=== PATIENT | female | born 1945 | race Caucasian/White ===

== ENCOUNTER → 2018-02-27 | Outpatient (CLI) | payer OTHER | LOC: M WHC 07:31 | DX: Z12.31 Encounter for screening mammogram for malignant neoplasm of breast (principal); Z80.3 Family history of malignant neoplasm of breast; Z78.0 Asymptomatic menopausal state; Z92.0 Personal history of contraception | CPT/HCPCS: 77067 ==

== ENCOUNTER → 2018-04-11 | Outpatient (REF) | payer OTHER | LOC: M LABDRAW1 10:56 | DX: R19.7 Diarrhea, unspecified (principal) | CPT/HCPCS: 87493 ==

== ENCOUNTER 2018-04-22 07:29 | Day surgery (SDC) | payer OTHER ==
[2018-04-22] MEDS: NS 1,000 ML IV (08:03)
[2018-04-22] MEDS ORDERED: PROPOFOL 200 MG/20 ML VIAL As Ordered (08:51)
[2018-04-22] MEDS ORDERED: PHENYLephrine HCL 500 MCG/5 ML (100MCG/ML) SYRINGE (J2370) As Ordered (08:51)
== END 2018-04-22 09:34 | disposition home or self-care (01) ==
LOC: M OPP 07:29
DX: Z12.11 Encounter for screening for malignant neoplasm of colon (principal); K52.9 Noninfective gastroenteritis and colitis, unspecified; I10 Essential (primary) hypertension; E78.5 Hyperlipidemia, unspecified; R00.2 Palpitations; K21.9 Gastro-esophageal reflux disease without esophagitis; M19.90 Unspecified osteoarthritis, unspecified site; M54.2 Cervicalgia; I67.1 Cerebral aneurysm, nonruptured; F41.9 Anxiety disorder, unspecified; Z85.818 Personal history of malignant neoplasm of other sites of lip, oral cavity, and pharynx; Z92.3 Personal history of irradiation; F17.210 Nicotine dependence, cigarettes, uncomplicated; Z88.2 Allergy status to sulfonamides; Z79.899 Other long term (current) drug therapy; Z80.3 Family history of malignant neoplasm of breast; Z80.6 Family history of leukemia
CPT/HCPCS: 45380

== ENCOUNTER → 2018-12-12 | Outpatient (REF) | payer OTHER ==
[~2018-12-12] MED LIST: ATOR1TAB21 PO; DILT180C74 PO; FISH100049 PO; NAPR-885 PO; OMEP40CA2 PO
[2018-12-12 16:53] LABS: FREE T3 2.4 PG/ML (2.2-4.0); THYROID STIMULATING HORMONE 2.18 uIU/ML (0.358-3.740); THYROXINE (T4) 7.5 UG/DL (4.5-12.0)
== END ==
LOC: M LABDRAW1 15:45
PROVIDERS: ATTEND Ophthalmology
DX: H53.2 Diplopia (principal)

== ENCOUNTER 2019-04-30 13:24 | Day surgery (SDC) | payer MEDICARE ==
[~2019-04-30] VITALS: Ht 157.5 cm; Wt 61.0 kg
[~2019-04-30 13:24] MED LIST changes: +CHOL50002 PO; -DILT180C74 PO; +DILT1CAP3 PO; +FENO145T13 PO; +LR 1,000 ML IV SCH
[2019-04-30] MEDS ORDERED: LIDOCAINE 2% INJ 100 MG/5 ML SDV (FOR ANES.) As Ordered ONE (15:05)
[2019-04-30] MEDS ORDERED: PROPOFOL 200 MG/20 ML VIAL As Ordered ONE (15:05)
[2019-04-30] MEDS ORDERED: ONDANSETRON 4MG/2ML VIAL (J2405) As Ordered ONE (15:07)
[2019-04-30] MEDS ORDERED: dexameTHASONE 4 MG/ML 1ML VIAL (J1100) As Ordered ONE (15:08)
[2019-04-30] MEDS ORDERED: fentaNYL 100 MCG/2 ML INJECTION (J3010) As Ordered ONE (15:11)
[2019-04-30] MEDS ORDERED: MIDAZOLAM INJ 2 MG/2 ML VIAL (J2250) As Ordered ONE (15:11)
[2019-04-30] MEDS ORDERED: ONDANSETRON 4MG/2ML VIAL (J2405) IV PRN (17:15)
[2019-04-30] MEDS ORDERED: LR 1,000 ML IV SCH ×2 (17:15)
[2019-04-30] MEDS ORDERED: fentaNYL 100 MCG/2 ML INJECTION (J3010) IV PRN (17:15)
[2019-04-30] MEDS ORDERED: IBUPROFEN 600 MG TAB PO PRN (17:15)
[2019-04-30 17:20] VITALS: BP 141/64
--- NOTE | 2019-04-30 22:01 | ECGEPIP ---
[facility] Test Date: 2019-04-30 Pat Name: ABRAHAM BANDA Department: Room: - Gender: Female Cardiac Cath Lab Radiology Technologist: GRACIE : 1945 Requested By: ASIF Ruiz Order Number: [id number] Reading MD: Zac Rain Measurements Intervals [place] Rate: 68 P: 63 RI: 234 QRS: QRSD: 86 T: 67 QT: 405 QTc: 432 Interpretive Statements SINUS RHYTHM WITH FIRST DEGREE AV BLOCK BORDERLINE LEFT AXIS DEVIATION LOW QRS VOLTAGE IN EXTREMITY LEADS Electronically Signed on 04-30-2019 22:01:11 EDT by Zac Rain
--- NOTE | 2019-05-01 08:24 | RO ---
DATE OF PROCEDURE: 04/30/2019 PREOPERATIVE DIAGNOSIS: Hematuria, she did have preoperative small caruncle. POSTOPERATIVE DIAGNOSIS: Normal bladder, still the small caruncle. No other significant lesion nor area of friability. PROCEDURE: Cystourethroscopy. SURGEON: Dr. Pat Holman MANAGER FINANCIAL REPORTING: None. ANESTHESIA: Laryngeal mask airway (LMA). BRIEF DESCRIPTION OF PROCEDURE AND FINDINGS: Sarita was brought to the operating room where sufficient LMA anesthesia was induced and she was prepped, draped and positioned in the usual sterile fashion and the cystoscope was placed. The first pictures were taken just with urine and you can see there is one or two tiny specks of fluff, but not a cloudy natural urine. No areas of friability. No polyps. No stones. No lesions. No hypervascularity. No Jean Paul's lesions. No ulcerations. No distortion or atypical appearance even on emptying the bladder and refilling it. We were able to see through the wall the normal peristalsis of the intestines. We were able to see normal jets of urine. We were able to see sort of normal bladder activity, but there was no evidence of any atypical finding for us to biopsy, nor was there abnormal distortion of the wall or abnormal thickening. We did fill and empty a couple of times just to kind of test the wall and also backed out slowly through the urethra and did not see any urethral lesions other than the urethral caruncle right at the meatus that we knew about before we placed the scope. She did not have anything worthy of biopsy, so no biopsy was done. The bladder was emptied at the end of the case and the procedure ended. Estimated blood loss for the procedure was 0 mL. Fluid replacement was crystalloid. Complications: None. Condition and Disposition: Sarita tolerated the procedure well and was recovering in the recovery room in good condition.
== END 2019-04-30 18:01 | disposition home or self-care (01) ==
LOC: M SDC 13:24
PROVIDERS: ATTEND Obstetrics & Gynecology
DX: R31.9 Hematuria, unspecified (principal); E78.00 Pure hypercholesterolemia, unspecified; R00.2 Palpitations; F41.9 Anxiety disorder, unspecified; K21.9 Gastro-esophageal reflux disease without esophagitis; Z88.2 Allergy status to sulfonamides; Z92.3 Personal history of irradiation; Z79.899 Other long term (current) drug therapy; Z85.818 Personal history of malignant neoplasm of other sites of lip, oral cavity, and pharynx; F17.210 Nicotine dependence, cigarettes, uncomplicated
CPT/HCPCS: 52000; 93005; J1100; J2250; J2405; J3010

== ENCOUNTER 2020-09-29 10:35 | Emergency (ER) | payer MEDICARE ==
[~2020-09-29] VITALS: Ht 157.5 cm; Wt 59.5 kg
[~2020-09-29 10:35] MED LIST changes: -FENO145T13 PO; +FENO145T7 PO; -LR 1,000 ML IV SCH; -OMEP40CA2 PO; +OMEP40CA97 PO
[2020-09-29 11:06] LABS: BASO # 0.1 10^3/uL (0.0-0.2); EOS # 0.2 10^3/uL (0.0-0.5); EOS % 3.1 % (0.0-3.0); HEMATOCRIT 36.3 % (36.0-47.0); HEMOGLOBIN 11.7 g/dl (12.0-15.5); LYMPH # 1.9 10^3/uL (1.5-5.0); LYMPH % 25.1 % (24.0-44.0); MEAN CORPUSCULAR HGB CONC 32.2 g/dl (32.0-36.5); MEAN CORPUSCULAR VOLUME 89.9 fl (80.0-96.0); MONO # 0.7 10^3/uL (0.0-0.8); MONO % 9.6 % (0.0-5.0); NEUTROPHILS # 4.7 10^3/uL (1.5-8.5); NEUTROPHILS % 60.9 % (36.0-66.0); PLATELET COUNT, AUTOMATED 398 10^3/uL (150-450); RED BLOOD COUNT 4.04 10^6/uL (4.00-5.40); WHITE BLOOD COUNT 7.6 10^3/uL (4.0-10.0)
[2020-09-29] MEDS ORDERED: FISH1000 PO (11:10)
[2020-09-29] MEDS ORDERED: GABA-843 PO (11:10)
--- NOTE | 2020-09-29 11:12 | REP ---
INDICATION: CHEST PAIN. COMPARISON: Comparison chest x-ray March 26, 2016. There is also a comparison chest x-ray from January 10, 2018.. TECHNIQUE: Portable upright AP single view. FINDINGS: Monitoring electrodes are seen. There is new fullness and enlargement of the left hilus. There is new left mediastinal fullness as well making the aortico-pulmonary window region convex outward. These findings are suspicious for malignant adenopathy in the hilus and mediastinum on the left. There is a patchy density in the left lung apex which may be nodule or postobstructive atelectasis. Lung hendricks are otherwise clear. Pleural angles are sharp. Heart is not enlarged. Pulmonary vasculature is not increased. No focal bony abnormality. IMPRESSION: Evidence of new left hilar lymphadenopathy and left mediastinal lymphadenopathy. Postobstructive change versus nodular density left apex. Recommend chest CT, preferably with IV contrast.. Cysts findings suspicious for bronchogenic malignancy. The findings represent a change from the comparison study. <Electronically signed by Jhonatan Moore > 09/29/20 1104
[2020-09-29 11:17] LABS: INR 1.07; PROTHROMBIN TIME 14.1 SECONDS (12.5-14.3)
[2020-09-29] MEDS ORDERED: ISOVUE-370 76% 100ML VIAL As Ordered ONE (11:31)
[2020-09-29 11:45] LABS: ALBUMIN 3.8 GM/DL (3.2-5.2); BILIRUBIN,DIRECT 0.1 MG/DL (0.0-0.2); BILIRUBIN,TOTAL 0.3 MG/DL (0.2-1.0); THYROID STIMULATING HORMONE 2.56 uIU/ML (0.358-3.740); TOTAL PROTEIN 7.1 GM/DL (6.4-8.2)
[2020-09-29 13:31] VITALS: BP 153/69
--- NOTE | 2020-09-29 14:45 | REP ---
INDICATION: pleuritic Cp/lung mass/r/o PE. COMPARISON: Comparison is made with today's portable chest x-ray showing a mass effect in the left hilus and left mediastinum. TECHNIQUE: Contrast dose: 75 ML of Isovue [address] technique: Helical scanning is acquired and overlapping 1.5 mm and contiguous 3 mm axial images are reformatted. In addition, maximum intensity projection and multiplanar re-formation images are generated in sagittal and coronal imaging projections. FINDINGS: CT study confirms the presence of a spiculated fairly large lung nodule in the left lung apex measuring 2.9 cm in greatest diameter. This demonstrates fibrotic extension with some cavitation towards the superolateral pleura. There is also biapical pleuroparenchymal scarring. There is a tiny 3 mm nodule in the left lower lobe on page 49 of 96 and series 402 of today's study. No other significant pulmonary nodule is seen. No infiltrate is seen. There is no evidence of pleural or pericardial effusion. There is some vascular calcification. There is good opacification of the pulmonary arterial tree. There is no CT evidence of pulmonary embolus. No aortic dissection or aneurysm is seen. There is bulky left hilar lymphadenopathy corresponding to the chest x-ray findings. Multiple enlarged left hilar lymph nodes are noted. There is also bulky AP window region mediastinal lymphadenopathy. A large subcarinal lymph node is seen. This measures 5 cm right to left x 2.8 cm anterior to posterior x 3.8 cm cranial to caudal. The AP window region mediastinal adenopathy measures up to 3.3 x 3.0 x 3.9 cm. There are several mildly enlarged spherical pretracheal lymph nodes. No definite right hilar adenopathy. The bulky adenopathy on the left attenuates the left main pulmonary artery which is rather narrowed. The left upper lobe pulmonary arterial vessels are narrowed as well. There is mass effect and a concentric narrowing on the left upper and lower lobe bronchi. There is a left adrenal mass measuring 2.9 cm in greatest diameter. The right adrenal gland is normal. There are suspicious lymph nodes in the celiac axis region to the left of midline in the upper abdomen. These measure 1.2 x 1.5 and 1.4 cm in diameter respectively. An opaque gallstone is visible in the gallbladder. There are small low-density lesions in the liver consistent with small cysts. Visualized upper abdominal structures are otherwise unremarkable. No bony destructive lesion is seen. IMPRESSION: Findings consistent with advanced bronchogenic malignancy. There is a spiculated 2.8 cm nodule in the left upper lobe with bulky left hilar, left mediastinal, subcarinal and pretracheal mediastinal adenopathy. There is a left adrenal mass consistent with metastasis and there are suspicious celiac axis lymph nodes in the left upper abdomen. There is associated mass effect attenuating the left pulmonary arteries and the left bronchial structures. Cholelithiasis is also noted. <Electronically signed by Jhonatan Moore > 09/29/20 [id number]
--- NOTE | 2020-09-30 07:02 | ECGEPIP ---
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
--- NOTE | 2020-09-30 07:33 | ED PDOC ---
Post-Departure Follow-Up dr martín moreno fxed formal report of cta chest for fuj Bruno Saldaña MD Sep 30, 2020 07:33
== END 2020-09-29 13:42 | disposition home or self-care (01) ==
LOC: M ED 10:35
DX: R91.8 Other nonspecific abnormal finding of lung field (principal); R94.31 Abnormal electrocardiogram [ECG] [EKG]; E78.9 Disorder of lipoprotein metabolism, unspecified; F17.200 Nicotine dependence, unspecified, uncomplicated; Z79.899 Other long term (current) drug therapy; Z91.040 Latex allergy status; Z85.21 Personal history of malignant neoplasm of larynx; Z92.3 Personal history of irradiation; Z80.3 Family history of malignant neoplasm of breast
CPT/HCPCS: 71045; 71275; 80047; 80076; 83690; 84443; 84484; 85025; 85610; 93005; 93041; 94760; 99285; Q9967

== ENCOUNTER 2020-09-30 16:03 | Emergency (ER) | payer MEDICARE ==
[~2020-09-30] VITALS: Ht 154.9 cm; Wt 60.4 kg
[~2020-09-30 16:03] MED LIST changes: +FISH1000 PO; +GABA-843 PO
[2020-09-30] MEDS ORDERED: FLUORESCEIN OPHTH 1 MG STRIP OD ONE (17:00)
[2020-09-30 17:40] VITALS: BP 150/70
[2020-09-30] MEDS ORDERED: ACETAMINOPHEN TAB 650MG DOSE (2X325MG) PO ONE (17:45)
== END 2020-09-30 17:49 | disposition home or self-care (01) ==
LOC: M ED 16:03
DX: T49.5X5A Adverse effect of ophthalmological drugs and preparations, initial encounter (principal); Y92.9 Unspecified place or not applicable; Y93.9 Activity, unspecified; R91.8 Other nonspecific abnormal finding of lung field; Z79.899 Other long term (current) drug therapy; Z88.2 Allergy status to sulfonamides

== ENCOUNTER → 2020-10-06 | Outpatient (CLI) | payer MEDICARE ==
[2020-10-06 15:58] LABS: PLATELET COUNT, AUTOMATED 499 10^3/uL (150-450)
[2020-10-06 16:14] LABS: INR 1.08; PROTHROMBIN TIME 14.2 SECONDS (12.5-14.3)
[2020-10-06 16:15] LABS: PARTIAL THROMBOPLASTIN TIME 41.1 SECONDS (24.2-38.5)
[2020-10-06 16:24] LABS: BLOOD UREA NITROGEN 10 MG/DL (7-18); CREATININE FOR GFR 0.74 MG/DL (0.55-1.30); GLOMERULAR FILTRATION RATE > 60.0 (>39)
== END ==
LOC: M PLALAB 14:29
PROVIDERS: ATTEND Internal Medicine Pulmonary Disease
DX: R91.8 Other nonspecific abnormal finding of lung field (principal)

== ENCOUNTER 2020-10-23 03:41 | Emergency (ER) | payer MEDICARE ==
[~2020-10-23] VITALS: Ht 157.5 cm; Wt 59.1 kg
[2020-10-23] MEDS ORDERED: OMEP-218 PO (04:00)
[2020-10-23] MEDS ORDERED: HYDR-3713 (04:00)
[2020-10-23] MEDS ORDERED: ADVA230A (04:00)
[2020-10-23] MEDS ORDERED: ONDANSETRON 4MG/2ML VIAL IV ONE ×2 (04:15→08:15)
[2020-10-23] MEDS ORDERED: COMBIVENT RESPIMAT 100-20MCG INHALER 4GM INH ONE (04:15)
[2020-10-23 04:29] LABS: BASO # 0.1 10^3/uL (0.0-0.2); BASO % 0.9 % (0.0-1.0); EOS # 0.1 10^3/uL (0.0-0.5); EOS % 1.4 % (0.0-3.0); HEMATOCRIT 36.2 % (36.0-47.0); HEMOGLOBIN 11.7 g/dl (12.0-15.5); LYMPH # 1.3 10^3/uL (1.5-5.0); LYMPH % 16.8 % (24.0-44.0); MEAN CORPUSCULAR HEMOGLOBIN 28.8 pg (27.0-33.0); MEAN CORPUSCULAR HGB CONC 32.3 g/dl (32.0-36.5); MEAN CORPUSCULAR VOLUME 89.2 fl (80.0-96.0); MONO # 0.6 10^3/uL (0.0-0.8); MONO % 7.3 % (0.0-5.0); NEUTROPHILS # 5.6 10^3/uL (1.5-8.5); NEUTROPHILS % 73.2 % (36.0-66.0); PLATELET COUNT, AUTOMATED 412 10^3/uL (150-450); RED BLOOD COUNT 4.06 10^6/uL (4.00-5.40); WHITE BLOOD COUNT 7.7 10^3/uL (4.0-10.0)
--- NOTE | 2020-10-23 04:49 | REPVR ---
PROCEDURE INFORMATION: Exam: XR Chest, 1 View Exam date and time: 10/23/20 (4:18am) Age: 75 years old Clinical indication: Dyspnea and cough TECHNIQUE: Imaging protocol: Portable CXR Views: 1 view COMPARISON: Portable CXR of 09/29/20 CT CHEST of 09/29/20 FINDINGS: Comparison is made with chest studies done on 09/29/20. Redemonstration of soft tissue fullness at the A-P window region (left hilar and suprahilar regions) --- which appears to have enlarged over the past 3-4 weeks. Faint poorly defined opacity again seen peripherally in the ARIANNE (a spiculated ARIANNE mass on recent CT-CHEST examination). Elevation of the left hemidiaphragm. No acute infiltrates. No pleural effusions. Stable heart size. IMPRESSION: Enlarging soft tissue fullness / mass at the A-P window region, compatible with malignant adenopathy. Elevation of the left hemidiaphragm. No acute infiltrate. No pleural effusions. See additional comments above. Electronically signed by: Madison Hdez On 10/23/2020 04:49:37 AM
[2020-10-23 04:52] LABS: ALT/SGPT 17 U/L (12-78); BILIRUBIN,DIRECT < 0.1 MG/DL (0.0-0.2); BILIRUBIN,TOTAL 0.3 MG/DL (0.2-1.0); BLOOD UREA NITROGEN 13 MG/DL (7-18); CALCIUM LEVEL 8.6 MG/DL (8.8-10.2); CARBON DIOXIDE LEVEL 26 MEQ/L (21-32); CHLORIDE LEVEL 98 MEQ/L (98-107); CK-MB VALUE MASS 3.5 NG/ML (<3.6); CPK CREATINE PHOSPHOKINASE 139 U/L (26-192); CREATININE FOR GFR 0.64 MG/DL (0.55-1.30); GLOMERULAR FILTRATION RATE > 60.0 (>39); GLUCOSE, FASTING 100 MG/DL (70-100); MB/CK RELATIVE INDEX 2.52 (< OR =4); POTASSIUM SERUM 4.2 MEQ/L (3.5-5.1); SODIUM LEVEL 132 MEQ/L (136-145); TOTAL PROTEIN 7.4 GM/DL (6.4-8.2); TROPONIN I < 0.02 NG/ML (< 0.10)
[2020-10-23] MEDS ORDERED: ISOVUE-370 76% 100ML VIAL As Ordered ONE ×2 (05:54→06:17)
--- NOTE | 2020-10-23 06:43 | ECGEPIP ---
[facility] - ED Test Date: 2020-10-23 Pat Name: ABRAHAM BANDA Department: Room: - Gender: Female Small Business Consultant: DUNCAN : 1945 Requested By: MARY Ornelas Order Number: [id number] Reading MD: Bruno Chan Measurements Intervals [place] Rate: 101 P: 56 MO: 176 QRS: -26 QRSD: 85 T: 59 QT: 343 QTc: 445 Interpretive Statements SINUS TACHYCARDIA BORDERLINE LEFT AXIS DEVIATION ABNORMAL RHYTHM ECG DELAYED R WAVE PROGRESSION NONSPECIFIC ST T WAVE CHANGES LOW QRS VOLTAGE LIMB LEADS CW 09/29/[address] T WAVE CHANGES Electronically Signed on 10-23-2020 6:43:21 EST by Bruno Chan
[2020-10-23] MEDS ORDERED: methylPREDNISolone 125MG 2ML VIAL IV ONE (07:15)
--- NOTE | 2020-10-23 07:27 | REPVR ---
PROCEDURE INFORMATION: Exam: CT Angiography Chest With Contrast Exam date and time: 10/23/2020 6:07 AM Age: 75 years old Clinical indication: Abnormal findings; Lung mass or nodule; Not specified; Shortness of breath; Additional info: SOB, lung mass, abd pain TECHNIQUE: Imaging protocol: Computed tomographic angiography of the chest with intravenous contrast. 3D rendering (Not supervised by radiologist): MIP and/or 3D reconstructed images were created by the technologist. Radiation optimization: All CT scans at this facility use at least one of these dose optimization techniques: automated exposure control; mA and/or kV adjustment per patient size (includes targeted exams where dose is matched to clinical indication); or iterative reconstruction. Contrast material: ISOVUE 370; Contrast volume: 100 ml; Contrast route: INTRAVENOUS (IV); COMPARISON: 1. CT ANGIO CHEST 09/29/2020 11:31 AM 2. IN - PORTABLE CHEST X-RAY 09/29/2020 10:52:37 AM 3. CR - Chest, 2 view PA, Lat 03/26/2016 11:47:55 AM FINDINGS: Pulmonary arteries: There is redemonstration of compression of the left main pulmonary artery and its central branches. There is no evidence of peripheral filling defects within the pulmonary arterial circulation to suggest pulmonary embolism. Aorta: The vasculature demonstrates diffuse moderate atherosclerotic calcification. Veins: There is compression of the left subclavian vein between the the sternoclavicular articulation and the underlying adenopathy on axial image 40 with extensive reflux of contrast into the left jugular and upper thoracic veins. Lungs: There is redemonstration of a spiculated 2.5 cm mass in the left upper lobe posteriorly extending to the pleural surface in 2 different areas suspicious for the primary malignancy. Pleural space: There is a moderate left pleural fluid collection present. There is biapical pleural thickening consistent with remote granulomatous organism exposure. Heart: The RV/LV ratio is 39/42 mm. The pulmonary artery density is 443 units. Mediastinal space: A small hiatal hernia is present. Lymph nodes: There is redemonstration of extensive adenopathy involving the mediastinum and landry more extensive on the left with the largest node measuring 5 cm on axial image 75. Adenopathy is again seen at the left renal pedicle. Liver: There are multiple liver hypodensities that cannot be further characterized on the current examination. Gallbladder and bile ducts: Multiple calcified gallstones are present. There is no evidence of cholecystitis or biliary dilatation. Pancreas: The pancreas is normal. Spleen: The spleen is normal. Adrenals: There are bilateral adrenal nodules measuring 1 cm on the left and 3 cm on the left which are regarded with suspicion for possible metastatic disease. Bones/joints: Unremarkable. No acute fracture. Soft tissues: Unremarkable. IMPRESSION: 1. Multiple calcified gallstones are present. There is no evidence of cholecystitis or biliary dilatation. 2. There are bilateral adrenal nodules measuring 1 cm on the left and 3 cm on the left which are regarded with suspicion for possible metastatic disease. 3. There is redemonstration of extensive adenopathy involving the mediastinum and landry more extensive on the left with the largest node measuring 5 cm on axial image 75. 4. Adenopathy is again seen at the left renal pedicle. 5. There is redemonstration of compression of the left main pulmonary artery and its central branches. 6. The RV/LV ratio is 39/42 mm. The pulmonary artery density is 443 units. 7. There is no evidence of peripheral filling defects within the pulmonary arterial circulation to suggest pulmonary embolism. 8. There is redemonstration of a spiculated 2.5 cm mass in the left upper lobe posteriorly extending to the pleural surface in 2 different areas suspicious for the primary malignancy. COMMENTS: Consistent with the [place] [employer]'s Incidental Findings Committee white paper (J Am Panfilo Radiol 2017): Any incidental adrenal lesion less than or equal to 1 cm is likely benign. No follow-up imaging is recommended for these lesions per consensus recommendations based on imaging criteria. Further lab evaluation could be pursued if warranted based on clinical findings. RECOMMENDATION: As per revised Fleischner Society guidelines for follow-up and management of pulmonary nodules: Recommend initial follow-up chest CT at 3 months with followup consideration at 18 to 24 months. Consider contrast enhanced chest CT, PET scan and/or biopsy as clinically warranted. Electronically signed by: Sam Enriquez On 10/23/2020 07:27:42 AM
--- NOTE | 2020-10-23 07:38 | REPVR ---
PROCEDURE INFORMATION: Exam: CT Abdomen And Pelvis With Contrast Exam date and time: 10/23/2020 6:07 AM Age: 75 years old Clinical indication: Abdominal pain; Generalized; Additional info: SOB, lung mass, abd pain TECHNIQUE: Imaging protocol: Computed tomography of the abdomen and pelvis with intravenous contrast. Radiation optimization: All CT scans at this facility use at least one of these dose optimization techniques: automated exposure control; mA and/or kV adjustment per patient size (includes targeted exams where dose is matched to clinical indication); or iterative reconstruction. Contrast material: ISOVUE 370; Contrast volume: 100 ml; Contrast route: INTRAVENOUS (IV); COMPARISON: No relevant prior studies available. FINDINGS: Liver: There is a peripherally enhancing 1 cm hypodense lesion at the caudal margin of liver segment 6 on axial image 55 which is suspicious for metastatic disease. Another more inferior caudal lesion measures 12 mm on image 66. There may be another similar lateral subserosal lesion of liver segment 5 measuring 9 mm on image 41. There are multiple liver sharply defined hypodensities of the left liver not clearly representing metastases but dynamic MRI could reveal features making involvement of the left lobe more definite. Gallbladder and bile ducts: Multiple calcified gallstones are present. There is no evidence of cholecystitis or biliary dilatation. Pancreas: The pancreas is normal. Spleen: The spleen is normal. Adrenal glands: A 1 cm mass of the right adrenal and a 3 cm enhancing mass of the left adrenal may represent metastases. Kidneys and ureters: The kidneys and ureters are normal including delayed images. There is no evidence of hydronephrosis or calculi. The kidneys and ureters are normal including delayed images. There is no evidence of hydronephrosis or calculi. Stomach and bowel: Unremarkable. No obstruction. No mucosal thickening. Appendix: A normal short appendix or appendiceal stump is identified. Intraperitoneal space: Unremarkable. No free air. No significant fluid collection. Vasculature: The vasculature demonstrates diffuse moderate atherosclerotic calcification. Lymph nodes: There is retroperitoneal adenopathy at the left renal hilum. Urinary bladder: Unremarkable as visualized. Reproductive: Unremarkable as visualized. Bones/joints: The spine demonstrates moderate degenerative changes at multiple levels. Soft tissues: Unremarkable. IMPRESSION: 1. Multiple calcified gallstones are present. There is no evidence of cholecystitis or biliary dilatation. 2. There is a peripherally enhancing 1 cm hypodense lesion at the caudal margin of liver segment 6 on axial image 55 which is suspicious for metastatic disease. Another more inferior caudal lesion measures 12 mm on image 66. There may be another similar lateral subserosal lesion of liver segment 5 measuring 9 mm on image 41. There are multiple liver sharply defined hypodensities of the left liver not clearly representing metastases but dynamic MRI could reveal features making involvement of the left lobe more definite. 3. A 1 cm mass of the right adrenal and a 3 cm enhancing mass of the left adrenal may represent metastases. 4. There is retroperitoneal adenopathy at the left renal hilum. Electronically signed by: Sam Enriquez On 10/23/2020 07:38:10 AM
[2020-10-23 07:54] LABS: NT-PRO BNP 167 PG/ML (<125)
[2020-10-23] MEDS ORDERED: PRED20TA PO (08:32)
[2020-10-23 09:19] VITALS: BP 162/75
--- NOTE | 2020-10-23 14:36 | ED PDOC ---
Post-Departure Follow-Up ct chest and abd/p faxedto josh ham for fu.Bruno Saldaña MD Oct 23, 2020 14:36
[2020-10-31] MEDS ORDERED: ACET-897 PO (09:32)
== END 2020-10-23 09:37 | disposition home or self-care (01) ==
LOC: M ED 03:41
DX: R06.00 Dyspnea, unspecified (principal); R00.0 Tachycardia, unspecified; R94.31 Abnormal electrocardiogram [ECG] [EKG]; C34.90 Malignant neoplasm of unspecified part of unspecified bronchus or lung; Z85.818 Personal history of malignant neoplasm of other sites of lip, oral cavity, and pharynx; I10 Essential (primary) hypertension; K21.9 Gastro-esophageal reflux disease without esophagitis; Z87.891 Personal history of nicotine dependence; E27.8 Other specified disorders of adrenal gland; K80.20 Calculus of gallbladder without cholecystitis without obstruction; Z79.899 Other long term (current) drug therapy; Z88.2 Allergy status to sulfonamides
CPT/HCPCS: 36600; 71045; 71275; 74177; 80048; 80076; 82550; 82553; 82803; 83605; 83880; 84484; 85025; 87040; 93005; 93041; 94640; 96374; 96375; 99285; J2405; J2930; Q9967; U0002

== ENCOUNTER → 2020-10-29 | Outpatient (CLI) | payer MEDICARE ==
[~2020-10-29] MED LIST changes: +ACET-897 PO; +ADVA230A; +HYDR-3713; +OMEP-218 PO; +PRED20TA PO
== END ==
LOC: M LABSMTC 09:56
PROVIDERS: ATTEND Anesthesiology
DX: Z01.812 Encounter for preprocedural laboratory examination (principal); Z20.828 Contact with and (suspected) exposure to other viral communicable diseases

== ENCOUNTER 2020-11-02 08:26 | Day surgery (SDC) | payer MEDICARE ==
[~2020-11-02] VITALS: Ht 154.9 cm; Wt 51.7 kg
[~2020-11-02 08:26] MED LIST changes: +ALBUTEROL SULFATE 2.5 MG/0.5 ML INH NEB SOLN INH ONE; +LIDOCAINE 4% INJ 5ML AMP INH ONE; +LR 1,000 ML IV ONE
[2020-11-02] MEDS ORDERED: dexameTHASONE 4 MG/ML 1ML VIAL (J1100 PER 1MG) As Ordered ONE (08:45)
[2020-11-02] MEDS ORDERED: propofoL 200 MG/20 ML VIAL As Ordered ONE (08:45)
[2020-11-02] MEDS ORDERED: LIDOCAINE 2% 100MG/5ML SDV (FOR ANES.) As Ordered ONE (08:45)
[2020-11-02] MEDS ORDERED: MIDAZOLAM INJ 2MG/2ML VIAL (J2250 PER 1MG) As Ordered ONE (08:45)
[2020-11-02] MEDS ORDERED: fentaNYL 100 MCG/2 ML INJECTION (J3010) As Ordered ONE (08:45)
[2020-11-02] MEDS ORDERED: SUGAMMADEX SODIUM 500 MG/5 ML VIAL (BRIDION) As Ordered ONE (08:45)
[2020-11-02] MEDS ORDERED: ONDANSETRON 4MG/2ML VIAL As Ordered ONE (08:45)
[2020-11-02] MEDS ORDERED: ROCURONIUM BROMIDE 50 MG/5 ML VIAL As Ordered ONE (08:45)
[2020-11-02] MEDS ORDERED: EPINEPHrine 1MG/10ML SYRINGE 1.5IN As Ordered ONE (11:13)
[2020-11-02] MEDS ORDERED: THROMBIN SOLN 20,000 UNITS KIT As Ordered ONE (11:13)
[2020-11-02] MEDS ORDERED: CETACAINE SPRAY 5GM As Ordered ONE (11:13)
[2020-11-02] MEDS ORDERED: THROMBIN SOLN 5,000 UNITS VIAL As Ordered ONE (11:15)
[2020-11-02] MEDS ORDERED: fentaNYL 100 MCG/2 ML INJECTION (J3010) IV PRN (13:00)
[2020-11-02] MEDS ORDERED: ONDANSETRON 4MG/2ML VIAL IV PRN (13:00)
[2020-11-02] MEDS ORDERED: LR 1,000 ML IV SCH (13:00)
--- NOTE | 2020-11-02 13:58 | RO ---
OPERATIVE NOTE DATE OF OPERATION: 11/02/2020 PREOPERATIVE DIAGNOSIS: Abnormal chest CT. POSTOPERATIVE DIAGNOSES: Left upper lobe obstructing mass and significant mediastinal adenopathy. PROCEDURE: Bronchoscopy with endobronchial ultrasound and endobronchial biopsy. PROCEDURALIST: Anastacio Church D.O. MACHINE BRUSH MAKER: CJ Wilkins. ANESTHESIA: General. Please refer to their records for details. SPECIMENS OBTAINED: 1. Endobronchial biopsies of the left upper lobe with forceps. 2. Fine needle aspiration (FNA) biopsy of the subcarinal node. ESTIMATED BLOOD LOSS: Less than 5 mL. COMPLICATIONS: None observed. DESCRIPTION OF PROCEDURE: After informed consent was reviewed with the patient in the preoperative area, she was brought back to OR #8 consented for bronchoscopy, EBUS, and possible robotic depending on endobronchial anatomy. Time-out was performed with two patient identifiers, identifying correct side and correct procedure. Anesthesia intubated the patient with an 8.5 endotracheal tube. After adequate sedation, the case was handed over to me. Time-out again was performed with two patient identifiers, identifying correct site and correct procedure, and correlating it with imaging that was on the OR screen. Cetacaine spray was used to anesthetize the airway and the 1T190 bronchoscope was inserted into the endotracheal tube. Trachea was midline. The gardenia was very splayed. The left mainstem was somewhat narrowed because of the splaying of the subcarinal node. There were copious amounts of thick yellow mucous throughout all airways. Right mainstem bronchus was inspected without endobronchial lesion. RB1 through 10 viewed without endobronchial lesion. Some anatomic variation of the right upper lobe with the apical and posterior segments coming off together. On visualization of the left mainstem at the end of the left mainstem at the takeoff of the left upper lobe, there was significantly abnormal mucosa. Left upper lobe was nearly obstructed with tumor. Biopsies were taken of these areas. There was also extrinsic compression. The left lower lobe had mucous. LB6 through 10 were without endobronchial lesion. Bronchoscope was then reinserted and left upper lobe endobronchial biopsies were performed with minimal amounts of bleeding. All bleeding stopped almost immediately without intervention. After subsequent sampling, the 1T190 bronchoscope was removed and the endobronchial linear ultrasound was placed. I viewed the subcarinal node, which was over 4 cm. This was easily biopsied both from the right and left side and core samples were provided to onsite cytology with suggested abnormal cells. After adequate sampling, endobronchial ultrasound was removed. The 1T190 scope was reinserted to ensure subsequent hemostasis. All airways were suctioned. There was adequate hemostasis ensured and the bronchoscope was removed. The patient was extubated and in recovery. Postprocedure chest x-ray is pending. No observed complications up until this point.
[2020-11-02 14:10] VITALS: BP 154/87
[2020-11-04] MEDS ORDERED: ALBU83IN NEB (19:06)
[2020-11-04] MEDS ORDERED: LEVO500T3 PO (19:06)
[2020-11-04] MEDS ORDERED: FENO145T7 PO (19:06)
[2020-11-04] MEDS ORDERED: ACET500L PO (19:06)
[2020-11-04] MEDS ORDERED: ADVA230A INH (19:06)
[2020-11-04] MEDS ORDERED: MED REC COMMENT (19:08)
== END 2020-11-02 16:10 | disposition home or self-care (01) ==
LOC: M SDC 08:26
PROVIDERS: ATTEND Internal Medicine Pulmonary Disease
DX: C34.12 Malignant neoplasm of upper lobe, left bronchus or lung (principal); C77.1 Secondary and unspecified malignant neoplasm of intrathoracic lymph nodes; K21.9 Gastro-esophageal reflux disease without esophagitis; F41.9 Anxiety disorder, unspecified; F32.9 Major depressive disorder, single episode, unspecified; J44.9 Chronic obstructive pulmonary disease, unspecified; Z88.2 Allergy status to sulfonamides; Z79.899 Other long term (current) drug therapy
CPT/HCPCS: 31628; 31652; 71045; 88173; 88305; 88341; 88342; C1887; J1100; J2250; J2405; J3010

== ENCOUNTER 2020-11-14 10:44 | Outpatient (RCR) | payer MEDICARE ==
[~2020-11-14 10:44] MED LIST changes: +ACET500L PO; +ADVA230A INH; +ALBU83IN NEB; -ALBUTEROL SULFATE 2.5 MG/0.5 ML INH NEB SOLN INH ONE; +AMOX875T2 PO; +DIFL50TA PO; +DILT30TA PO; +LEVO500T3 PO; -LIDOCAINE 4% INJ 5ML AMP INH ONE; -LR 1,000 ML IV ONE; +MED REC COMMENT; +MORP1SOL SL; +MUCI600T31 PO; +NYST50SS PO; +PRED10TA2 PO; +SCOP1PAT2 TOP
--- NOTE | 2020-11-14 12:21 | RADENCPD ---
Date/Time of Encounter Date of Encounter: Nov 14, 2020 Time of Encounter: 11:30 Encounter Patient completed final RT today, total dose was 17 Gy in 2 fractions to her bulky chest disease. She will in all likelihood develop esophagitis from this treatment, which she and I decided was an acceptable toxicity. I will manage this and see her in 2 weeks as an outpatient (which should be the peak of her symptoms). I will prescribe her magic mouthwash and liquid oxycodone for this. In addition, she complained of oral ulcerations x2 weeks today. On exam she has scattered 2-3 mm raised pale ulcers on all mucosal surfaces in her mouth. These have no redness or bleeding, or drainage. 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 I will monitor these in follow up as well. STAN RODRIGUEZ MD Nov 14, 2020 12:21
[2020-11-14] MEDS ORDERED: MAGICMW SS (12:23)
[2020-11-21] MEDS ORDERED: DIFL50TA PO (10:53)
[2020-11-21] MEDS ORDERED: NYST50SS PO (10:53)
[2020-11-21] MEDS ORDERED: SODI325T9 PO (11:01)
[2020-11-21] MEDS ORDERED: ONDA8TAB8 PO (11:03)
--- NOTE | 2020-11-21 11:56 | RADENCPD ---
Date/Time of Encounter Date of Encounter: Nov 21, 2020 Time of Encounter: 11:52 Encounter I saw Sarita (with her daughter present), today for a brief follow up. She completed palliative thoracic RT last week 17 Gy in 2 fractions to her large mediastinal masses. Today she feels overall much better, breathing easier, less cough. Less pain in the chest. She is fully ambulatory. Wearing 2L NC O2. She does have expected esophagitis from radiation. She has BLM, I instructed her on its use. She will continue this. She also has morphine PRN. Overall she is able to eat, we talked about increasing H2O intake as well as supplementing protein and calories. I think she needs approximately 1500 calories per day to sustain and stabilize her weight. They will work on this. Overall I am pleased with her progress post-RT. She will now begin chemotherapy with Dr. Sofia. I will see her again in 3 months time, likely ordering an MRI at that juncture to restage in anticipation of PCI discussion. STAN RODRIGUEZ MD Nov 21, 2020 11:56
[2020-11-28] MEDS ORDERED: PRED10TA2 PO (14:20)
== END 2020-12-01 ==
LOC: M ONCR 10:44
PROVIDERS: ATTEND General Practice
DX: C34.12 Malignant neoplasm of upper lobe, left bronchus or lung (principal)

== ENCOUNTER → 2020-11-17 | Outpatient (CLI) | payer MEDICARE ==
[~2020-11-17] MED LIST changes: +LIDOCAINE 1% MDV 20ML VIAL As Ordered ONE; +MAGICMW SS; +MIDAZOLAM INJ 2MG/2ML VIAL (J2250 PER 1MG) As Ordered ONE; +ONDA8TAB8 PO; +SODI325T9 PO; +ceFAZolin 2 GM/D5W 50 ML IV BAG (J0690 PER 500MG) As Ordered ONE; +diphenhydrAMINE 50MG/ML VIAL (J1200) As Ordered ONE; +fentaNYL 100 MCG/2 ML INJECTION (J3010) As Ordered ONE
--- NOTE | 2020-11-17 13:57 | IRHP ---
[facility] IR Pre-Procedure H & P General Date of Service: Nov 17, 2020 Procedure: Same Day Surgery Interval History and Physical I have seen the patient and reviewed last H & P performed within 30 days. There is no significant interval change. History of Present Illness Chief Complaint The patient is a 75-year-old female admitted with a reason for visit of Lung Ca. PRE-PROCEDURE DIAGNOSIS: lung cancer HEART: normal rate. LUNGS: normal breathing at rest. ASA Classification ASA Classification: III-Severe systemic dis. Mallampati Score: II NPO: Yes Problems with prior sedation: No Obstructive Sleep Apnea: No Plan moderate sedation Allergies Coded Allergies: Sulfa (Sulfonamide Antibiotics) (Verified Adverse Reaction, Mild, feels weird, 10/31/20) Home Medications Scheduled Fenofibrate Nanocrystallized (Fenofibrate), 145 MG PO DAILY, (Reported) Fluconazole (Diflucan), 150 MG PO DAILY Fluticasone Propion/Salmeterol (Advair Hfa 230-21 Mcg Inhaler), 2 PUFFS INH BID, (Reported) Guaifenesin (Mucinex), 1,200 MG PO BID Nystatin (Nystatin Oral Susp), 5 ML PO QID Omeprazole (Omeprazole), 20 MG PO DAILY, (Reported) Omeprazole (Omeprazole), 40 MG PO DAILY Prednisone (Prednisone), 10 MG PO TAPER Scopolamine (Transderm-Scop), 1 MG TOP Q72H Scheduled PRN Acetaminophen (Pain Relief Adult), 19.5 ML PO Q6H PRN for PAIN, (Reported) Albuterol Sulf (Albuterol Sulfate), 2.5 MG NEB Q6H PRN for SHORTNESS OF BREATH, (Reported) Magic Mouthwash (First-Mouthwash Blm), 10 ML SS QID PRN for esophagitis Morphine Sulfate (Morphine Sulfate Concentrate), 5 MG SL Q4HP PRN for PAIN or Air hunger Miscellaneous Medications [Med Rec Comment], (Reported) Discontinued Medications Amoxicillin/Potassium Clav (Amox-Clav 875-125 mg Tablet), 875 MG PO BID Discontinued Reason: Pt states not taking Diltiazem HCl (Diltiazem 24Hr ER), 180 MG PO DAILY, (Reported) Levofloxacin (Levofloxacin), 500 MG PO DAILY, (Reported) VS, I&O, 24H, Fishbone Vital Signs/I&O Vital Signs Date Time Temp Pulse Resp B/P (MAP) Pulse Ox O2 Delivery O2 Flow Rate FiO2 11/17/20 13:06 98.4 116 18 100 Nasal Cannula 2 MAAN GARCIA MD Nov 17, 2020 13:56
[2020-11-17 16:30] VITALS: BP 130/59
--- NOTE | 2020-11-18 10:25 | POST-OPPD ---
Postoperative Procedure Note Date Of Procedure: Nov 17, 2020 Time Of Procedure: 16:00 IR ultrasound and fluoroscopy guided port placement IR Ultrasound of the neck. IR Moderate sedation. Clinical indication: Lung cancer. Physician: Dr. Montes De Oca. Procedure: The patient was advised of the benefits, risks, and alternatives of the procedure and informed consent was obtained. A time-out was performed with verification of the patient's name, MRN, site of procedure and type of procedure to be performed. The patient was positioned in the supine position on the angiographic table. The site was prepped and draped in the usual sterile fashion. Moderate sedation was performed by the physician including the presence of an independent trained RN who assisted and monitored the patient's level of consciousness and physiologic status. Following the administration of fentanyl and Versed , the physician spent 45 minutes of continuous face to face time with the patient. Ultrasound of the neck reveals a patent and compressible right internal jugular vein. A rn ambulatory radiograph reveals streaky opacities in the lungs. The neck and anterior chest wall were anesthetized with lidocaine. The right in ternal jugular vein was accessed using a microintroducer needle under ultrasound guidance, via a lateral approach. An 018 wire was advanced into the superior vena cava, the needle was removed and a microsheath was placed. An Amplatz wire was then passed into the inferior vena cava. An incision at the internal jugular vein access site and anterior chest wall were made using a scalpel. An incision was made at the anterior chest wall. A small pocket was created using a combination of blunt and sharp dissection. A tunneling device was then used to pass the catheter from the pocket to the neck puncture site. An 8- Portuguese Ang[employer] Smart power port was then positioned in the pocket. The catheter was then measured and cut. The introducer sheath was exchanged for a peel-away sheath. The catheter was passed through the peel-away sheath into the internal jugular vein and the peel- away sheath was removed. The port tip was positioned at the cavoatrial junction. The port was then accessed with a Martinez needle. The port flushes and aspirates well. The puncture site in the neck was closed. The chest wall incision was then closed with 2-0 Vicryl and 4-0 Monocryl. Glue and Steri- Strips were applied. A sterile dressing was then applied. The patient tolerated the procedure well and was returned to the PRU in stable condition. Estimated blood loss: <5 ml. Complications: None. Conclusion: 1. Successful placement of an 8-Portuguese Angio dynamics Smart power port via the right internal jugular vein. The port is ready for immediate use. 2. Patient to follow up in IR clinic in 2 weeks. Thank you for this referral. AMAN MONTES DE OCA MD Nov 18, 2020 10:25
== END ==
LOC: M IRPRO 12:26
PROVIDERS: ATTEND Radiology Diagnostic Radiology
DX: C34.90 Malignant neoplasm of unspecified part of unspecified bronchus or lung (principal); Z88.5 Allergy status to narcotic agent; Z79.899 Other long term (current) drug therapy
CPT/HCPCS: 36591; 99152; 99153; C1769; C1788; C1894; J0690; J1200; J1642; J1644; J2250; J3010

== ENCOUNTER 2020-11-28 13:12 | Outpatient (CLI) | payer MEDICARE ==
[~2020-11-28] VITALS: Ht 152.4 cm; Wt 59.7 kg
[~2020-11-28 13:12] MED LIST changes: -LIDOCAINE 1% MDV 20ML VIAL As Ordered ONE; -MIDAZOLAM INJ 2MG/2ML VIAL (J2250 PER 1MG) As Ordered ONE; -ceFAZolin 2 GM/D5W 50 ML IV BAG (J0690 PER 500MG) As Ordered ONE; -diphenhydrAMINE 50MG/ML VIAL (J1200) As Ordered ONE; -fentaNYL 100 MCG/2 ML INJECTION (J3010) As Ordered ONE
[2020-11-28 13:20] VITALS: BP 108/67
[2020-11-28] MEDS ORDERED: KCL 20MEQ in NS 1000ML 1,000 ML IV SCH (13:30)
[2020-11-28] MEDS ORDERED: SODIUM CHLORIDE 0.9% INJ 10 ML SYR IV PRN (13:30)
[2020-11-28] MEDS ORDERED: PRED10TA2 PO (14:20)
[2020-11-28 16:45] VITALS: BP 123/61
[2020-11-29] MEDS ORDERED: SODIUM CHLORIDE 0.9% INJ 10 ML SYR IV SCH (09:00)
== END 2020-11-28 16:45 | disposition home or self-care (01) ==
LOC: M INFU 13:12
PROVIDERS: ATTEND Internal Medicine Hematology & Oncology
DX: C34.90 Malignant neoplasm of unspecified part of unspecified bronchus or lung (principal)

== ENCOUNTER → 2020-12-06 | Outpatient (POV) | payer MEDICARE ==
[~2020-12-06] MED LIST changes: +SUCR1TA PO
--- NOTE | 2020-12-12 12:41 | IRPN ---
[facility] IR Progress Note IR Progress Note DATE: Dec 06, 2020 Patient agreed to this telephone follow-up. Duration of call 5 minutes. Video available. FOLLOW-UP: Patient status post port placement. Patient denies any fevers, chills, pain at site or discharge. Patient states port was used without any issues. ON EXAMINATION: Video conference was performed. Port site appears to be healing well. Glue and Steri-Strips are still on. No redness, swelling or discharge. IMPRESSION: Status post port placement, patient doing well. No further follow-up scheduled unless initiated by patient and/or referring provider. Thank you for this referral Allergies Coded Allergies: Sulfa (Sulfonamide Antibiotics) (Verified Adverse Reaction, Mild, feels weird, 10/31/20) AMAN GARCIA MD Dec 12, 2020 12:41
== END ==
LOC: M TMIRPOV 11:13
PROVIDERS: ATTEND Radiology Diagnostic Radiology
DX: Z45.2 Encounter for adjustment and management of vascular access device (principal)